=== PATIENT | male | born 1960 | race Caucasian/White ===

== ENCOUNTER 2018-03-24 21:32 | Inpatient (IN) | payer OTHER ==
[~2018-03-24] VITALS: Ht 172.7 cm; Wt 88.7 kg
[2018-03-24] MEDS ORDERED: ALPR1TAB2 PO (21:51)
[2018-03-24] MEDS ORDERED: [UNRECOGNIZED DRUG - OTHER] PO (21:52)
[2018-03-24] MEDS ORDERED: SILD50TA PO (21:52)
[2018-03-24] MEDS ORDERED: TRIBENZOR (21:53)
[2018-03-24] MEDS ORDERED: BYSTOLIC (21:54)
--- NOTE | 2018-03-24 22:01 | NUR ---
PT BIB [facility] FROM [facility] FOR A 8 MM SUBDURAL HEMATOMA PT WENT TO THE ED C/O A HEADACHE THAT WAS GETTING WORSE OVER THE LAST WEEK. PT HAD A GAINSWAVE PROCEDURE FOR ERECTILE DYSFUNCTION TODAY AND HAS HAD THEM TWICE A WEEK FOR THREE WEEKS. HE HAS STARTED TAKING A NEW MEDICATION CALLED CYDINOQUIL FOR THE LAST TWO WEEKS. HE HAS REPORTED HEADACHES SINCE HE STARTED TAKING THE NEW MEDICATION. HE ALSO TAKES VIAGRA OFTEN. LAST TAKEN YESTERDAY. HE HAS A HISTORY OF HTN, BUT HAS NOT BEEN COMPLAINT WITH TAKING HIS MEDS. PT WAS GIVEN HYDRALAZINE, REGLAN AND BENADRYL BELLSTAND ATTENDANT. PT REPORTS HE STILL HAS A HEADACHE. PT HAS BEEN SEEN BY DR CHAMBERS. AT BEDSIDE. EKG DONE. CALL LIGHT IN PLACE. WILL CONTINUE TO MONITOR.
--- NOTE | 2018-03-24 22:22 | NUR ---
[facility] CALLED. CT BEING PUSHED OVER
--- NOTE | 2018-03-24 22:28 | NUR ---
AWARE OF VS
--- NOTE | 2018-03-24 22:29 | NUR ---
PT RESTING IN ROOM WITH EYES CLOSED. REGULAR RESP. AT BEDSIDE. WILL CONTINUE TO MONITOR.
--- NOTE | 2018-03-24 22:48 | NUR ---
TOOK PATIENT'S BELONGINGS HOME
--- NOTE | 2018-03-24 22:48 | NUR ---
: LEORA [phone]
--- NOTE | 2018-03-24 22:49 | NUR ---
AWARE OF VS
--- NOTE | 2018-03-24 22:55 | NUR ---
PT'S INITIAL BP WAS 240/120 AT [facility] MD AWARE OF OF CURRENT VS NO NEW ORDERS AT THIS TIME.
--- NOTE | 2018-03-24 23:44 | NUR ---
HOSPITALIST IN ROOM
[2018-03-25] MEDS ORDERED: CAPTOPRIL 25 MG TABLET PO PRN
[2018-03-25] MEDS ORDERED: LABETALOL 5MG/ML, 20ML IVPush PRN
[2018-03-25] MEDS ORDERED: ONDANSETRON 2MG/ML, 2ML IVPush PRN
[2018-03-25] MEDS ORDERED: ACETAMINOPHEN 325 MG TABLET PO PRN
[2018-03-25] MEDS ORDERED: OXYcodone/APAP 5/325MG TABLET ONE (00:20)
[2018-03-25] MEDS: OXYcodone/APAP 5/325MG TABLET PO PRN (00:21)
[2018-03-25] MEDS ORDERED: hydrALAzine 20 MG/ML, 1ML ONE (00:26)
[2018-03-25] MEDS: hydrALAzine 20 MG/ML, 1ML IV PRN ×2 (00:28→02:12)
--- NOTE | 2018-03-25 00:31 | NUR ---
PT A&O X4 NO NEURO DEFICITS PT GIVEN A BLANKET. NO ACUTE DISTRESS NOTED. WILL CONTINUE TO MONITOR.
[2018-03-25 00:35] LABS: ANION GAP 7 mmol/L (5-15); CALCIUM 8.9 mg/dL (8.5-10.1); CHLORIDE 106 mmol/L (98-107)
--- NOTE | 2018-03-25 01:04 | NUR ---
PT RESTING IN ROOM. NO ACUTE DISTRESS NOTED. CALL LIGHT IN PLACE. WILL CONTINUE TO MONITOR.
[2018-03-25] MEDS: DEXAMETHASONE 4 MG TABLET PO SCH ×5 (02:38→20:21)
[2018-03-25 03:04] VITALS: BP 151/68
[2018-03-25 04:03] VITALS: BP 143/68
[2018-03-25 04:44] LABS: ANION GAP 9 mmol/L (5-15); CALCIUM 8.9 mg/dL (8.5-10.1); CHLORIDE 107 mmol/L (98-107); CHOLESTEROL, TOTAL 110 mg/dL (140-239)
[2018-03-25 04:46] LABS: CHOL/HDL RATIO 3.8; HDL CHOL % 26 % (26-37); HDL CHOLESTEROL (DIRECT) 29 mg/dL (40-60); LDL CHOLESTEROL,CALCULATED 56 mg/dL (54-169); LDL/HDL RATIO 1.9 (0.5-3.0); TRIGLYCERIDES 126 mg/dL (50-200); VLDL CHOLESTEROL 25 mg/dL (0-25)
[2018-03-25 05:31] LABS: MEAN CORPUSCULAR HEMOGLOBIN 29.4 pg (27.5-34.5); MEAN CORPUSCULAR HGB CONC 33.4 g/dL (33.2-36.2); MEAN CORPUSCULAR VOLUME 88.3 fL (81-97); RED BLOOD COUNT 6.38 x10^6/uL (4.38-5.82); RED CELL DISTRIBUTION WIDTH 14.5 % (9.4-14.8)
[2018-03-25] MEDS ORDERED: DEXAMETHASONE 4 MG TABLET PO SCH (06:00)
[2018-03-25 06:04] LABS: BASOPHILS % (AUTO) 1 % (0-1); EOSINOPHILS # (AUTO) 0.15 x10^3/uL (0-0.4); EOSINOPHILS % (AUTO) 1 % (1-7); LYMPHOCYTES # (AUTO) 1.17 x10^3/uL (1-3.4); LYMPHOCYTES % (AUTO) 9 % (22-44); MD SCAN; MEAN PLATELET VOLUME 11.7 fL (7.4-10.4); MONOCYTES # (AUTO) 0.62 x10^3/uL (0.2-0.8); MONOCYTES % (AUTO) 5 % (2-9); NEUTROPHILS # (AUTO) 11.24 x10^3/uL (1.8-6.8); NEUTROPHILS % (AUTO) 85 % (42-75); PLATELET COUNT 153 x10^3/uL (130-400)
[2018-03-25] MEDS: NEBIVOLOL HCL 5 MG TABLET PO SCH (08:23)
[2018-03-25] MEDS ORDERED: ALPRazolam 1MG TABLET PO SCH (09:00)
[2018-03-25] MEDS ORDERED: OMNIPAQUE 350 MG/ML, 100ML BOTTLE ONE (10:42)
[2018-03-25] MEDS: ALPRazolam 1MG TABLET PO PRN (16:09)
[2018-03-25] MEDS: NICOTINE 7 MG/24 HR PATCH.TD24 TD SCH (17:49)
[2018-03-26] MEDS: ALPRazolam 1MG TABLET PO PRN ×2 (00:23→10:11)
[2018-03-26] MEDS: CALCIUM CARBONATE 500 MG TAB.CHEW PO PRN ×2 (00:24→04:13)
[2018-03-26 04:00] VITALS: BP 142/74
[2018-03-26 04:30] LABS: MEAN CORPUSCULAR HEMOGLOBIN 29.2 pg (27.5-34.5); MEAN CORPUSCULAR HGB CONC 32.6 g/dL (33.2-36.2); MEAN CORPUSCULAR VOLUME 89.6 fL (81-97); MEAN PLATELET VOLUME 10.8 fL (7.4-10.4); PLATELET COUNT 170 x10^3/uL (130-400); RED BLOOD COUNT 6.53 x10^6/uL (4.38-5.82); RED CELL DISTRIBUTION WIDTH 14.5 % (9.4-14.8)
[2018-03-26 04:42] LABS: ALBUMIN 3.9 g/dL (3.4-5.0); CALCIUM 9.7 mg/dL (8.5-10.1); CHLORIDE 104 mmol/L (98-107)
[2018-03-26 04:46] LABS: ALANINE AMINOTRANSFERASE 18 U/L (12-78); ALKALINE PHOSPHATASE 96 U/L (45-117); ANION GAP 6 mmol/L (5-15); BILIRUBIN,TOTAL 0.9 mg/dL (0.2-1.0); CREATININE 1.29 mg/dL (0.7-1.3); TOTAL PROTEIN 8.6 g/dL (6.4-8.2)
[2018-03-26 05:10] LABS: BASOPHILS % (AUTO) 1 % (0-1); EOSINOPHILS % (AUTO) 0 % (1-7); LYMPHOCYTES # (AUTO) 0.87 x10^3/uL (1-3.4); LYMPHOCYTES % (AUTO) 5 % (22-44); MD SCAN; MONOCYTES # (AUTO) 0.31 x10^3/uL (0.2-0.8); MONOCYTES % (AUTO) 2 % (2-9); NEUTROPHILS # (AUTO) 17.95 x10^3/uL (1.8-6.8); NEUTROPHILS % (AUTO) 93 % (42-75)
[2018-03-26] MEDS: DEXAMETHASONE 4 MG TABLET PO SCH ×4 (05:35→21:00)
[2018-03-26] MEDS: AMLODIPINE 5 MG TABLET PO SCH ×2 (10:06→21:00)
[2018-03-26] MEDS: NEBIVOLOL HCL 5 MG TABLET PO SCH (10:06)
[2018-03-26] MEDS ORDERED: LOSARTAN 50MG TABLET PO SCH ×2 (13:30→15:30)
[2018-03-26] MEDS: NICOTINE 7 MG/24 HR PATCH.TD24 TD SCH (13:57)
[2018-03-26] MEDS ORDERED: hydrALAzine 20 MG/ML, 1ML IV PRN ×2 (14:00→20:00)
[2018-03-26] MEDS ORDERED: LOSARTAN 50MG TABLET ONE (15:05)
[2018-03-26] MEDS: INSULIN LISPRO 100 UNITS/ML, PEN SQ-INSULIN SCH ×2 (16:00→23:11)
[2018-03-26] MEDS ORDERED: BUPIVACAINE/PF-EPI 0.5% 1:200K ONE (18:08)
[2018-03-26] MEDS ORDERED: BACITRACIN 50,000 UNIT ONE (18:08)
[2018-03-26] MEDS ORDERED: THROMBIN 5,000 UNIT VIAL TP ONE (18:08)
[2018-03-26] MEDS ORDERED: FENTANYL PF 250 MCG/5ML ONE ×2 (18:17→19:01)
[2018-03-26] MEDS ORDERED: MIDAZOLAM 1 MG/ML, 2ML ONE (18:17)
[2018-03-26] MEDS ORDERED: MANNITOL PMX 20% 500 ML ONE (18:34)
[2018-03-26] MEDS ORDERED: CEFTRIAXONE 1,000 MG ONE (18:35)
[2018-03-26 18:43] LABS: INTERNATIONAL NORMALIZED RATIO 1.19 (0.93-1.1); PROTHROMBIN TIME 12.5 Seconds (9.6-11.5)
[2018-03-26] MEDS ORDERED: THROMBIN 20,000 UNIT VIAL TP ONE (18:57)
[2018-03-26] MEDS ORDERED: ONDANSETRON 2MG/ML, 2ML IV PRN ×2 (20:00→23:45)
[2018-03-26] MEDS ORDERED: ACETAMINOPHEN 325 MG TABLET PO PRN (20:00)
[2018-03-26] MEDS ORDERED: FENTANYL PF 100 MCG/2ML IV PRN (20:00)
[2018-03-26] MEDS ORDERED: ALBUTEROL SULFATE 2.5 MG/3 ML NPPB PRN (20:00)
[2018-03-26] MEDS ORDERED: LEVETIRACETAM 1,000 MG in SODIUM CHLORIDE 0.9% 100 ML IV ONE (20:00)
[2018-03-26] MEDS ORDERED: EPHEDRINE 50 MG/ML, 1ML IVPush PRN (20:00)
[2018-03-26] MEDS ORDERED: OXYcodone 5 MG/5 ML ORAL.SOL UDC PO PRN (20:00)
[2018-03-26] MEDS ORDERED: HYDROmorphone 2 MG/ML, 1ML IVPush PRN (20:00)
[2018-03-26] MEDS ORDERED: LABETALOL 5MG/ML, 20ML IV PRN ×2 (20:00→23:45)
[2018-03-26] MEDS ORDERED: PROMETHAZINE 25 MG/ML, 1ML IV PRN (20:00)
[2018-03-26] MEDS ORDERED: MIDAZOLAM 1 MG/ML, 2ML IV PRN (20:00)
[2018-03-26] MEDS ORDERED: DIAZEPAM 5 MG/ML, 2ML IVPush PRN (20:00)
[2018-03-26] MEDS ORDERED: MORPHINE SULFATE 4 MG/ML, 1ML IVPush PRN (20:00)
[2018-03-26] MEDS ORDERED: ONDANSETRON ODT 8 MG PO PRN (20:00)
[2018-03-26] MEDS ORDERED: PROMETHAZINE 12.5 MG SUPP PR PRN (20:00)
[2018-03-26] MEDS ORDERED: HALOPERIDOL 5 MG/ML IV PRN (20:00)
[2018-03-26] MEDS ORDERED: MEPERIDINE/PF 25MG/0.5ML IVPush PRN (20:00)
[2018-03-26] MEDS ORDERED: ROCURONIUM 10MG/ML,5ML ONE (20:11)
[2018-03-26] MEDS ORDERED: PROPOFOL 10 MG/ML, 20ML ONE (20:11)
[2018-03-26] MEDS ORDERED: ONDANSETRON 2MG/ML, 2ML ONE ×2 (20:11→20:12)
[2018-03-26] MEDS ORDERED: DEXAMETHASONE 4 MG/ML, 1ML ONE ×3 (20:11→20:12)
[2018-03-26] MEDS ORDERED: SUCCINYLCHOLINE 20 MG/ML, 10ML ONE (20:11)
[2018-03-26] MEDS ORDERED: GLYCOPYRROLATE 0.2MG/1ML, 5ML ONE (20:12)
[2018-03-26] MEDS ORDERED: VASOPRESSIN 20 UNIT/ML, 1ML ONE (20:12)
[2018-03-26] MEDS ORDERED: CEFAZOLIN 1,000 MG ONE ×2 (20:12)
[2018-03-26] MEDS ORDERED: hydrALAzine 20 MG/ML, 1ML ONE (20:51)
[2018-03-26] MEDS ORDERED: FENTANYL PF 100 MCG/2ML ONE (21:19)
[2018-03-26] MEDS ORDERED: cloniDINE/PF 100 MCG/ML, 10 ML ONE (21:29)
[2018-03-26] MEDS ORDERED: cloniDINE 0.3MG PATCH ONE (21:36)
[2018-03-26] MEDS ORDERED: cloniDINE 0.3MG PATCH TD ONE (23:00)
[2018-03-26] MEDS ORDERED: NS + 20MEQ KCL 1,000 ML IV SCH (23:45)
[2018-03-26] MEDS ORDERED: ACETAMINOPHEN 650 MG SUPP PR PRN (23:45)
[2018-03-26] MEDS ORDERED: HYDROcodone/APAP 5/325 TABLET PO PRN (23:45)
[2018-03-26] MEDS ORDERED: morphine SULFATE 10 MG/ML, 1ML IV PRN (23:45)
[2018-03-27] MEDS: CEFAZOLIN PMX 1GM/50ML 50 ML IVPB SCH ×2 (00:17→08:10)
[2018-03-27] MEDS: morphine SULFATE 10 MG/ML, 1ML IV PRN ×2 (00:26→10:50)
[2018-03-27] MEDS ORDERED: LORazepam 2 MG/ML, 1ML IVPush ONE (01:00)
[2018-03-27] MEDS ORDERED: LORazepam 2 MG/ML, 1ML IVPush PRN (02:30)
[2018-03-27] MEDS ORDERED: PHARMACY MAY ADJ FOR RENAL FX MC SCH (03:00)
[2018-03-27] MEDS ORDERED: LIDOCAINE-MPF 1%, 2ML ENDO PRN (03:00)
[2018-03-27] MEDS: PROPOFOL 100 ML IV PRN ×2 (03:04→08:14)
[2018-03-27 04:00] VITALS: BP 105/48
[2018-03-27 05:19] LABS: ANION GAP 5 mmol/L (5-15); CALCIUM 7.6 mg/dL (8.5-10.1); CHLORIDE 111 mmol/L (98-107); CREATININE 1.33 mg/dL (0.7-1.3)
[2018-03-27] MEDS: FAMOTIDINE 20 MG/2 ML IV SCH ×2 (05:31→16:47)
[2018-03-27 06:56] LABS: MEAN CORPUSCULAR HEMOGLOBIN 29.3 pg (27.5-34.5); MEAN CORPUSCULAR HGB CONC 32.5 g/dL (33.2-36.2); MEAN PLATELET VOLUME 11.6 fL (7.4-10.4); PLATELET COUNT 186 x10^3/uL (130-400); RED CELL DISTRIBUTION WIDTH 14.9 % (9.4-14.8)
[2018-03-27 07:11] LABS: BASOPHILS % (AUTO) 0 % (0-1); EOSINOPHILS % (AUTO) 0 % (1-7); LYMPHOCYTES # (AUTO) 0.45 x10^3/uL (1-3.4); LYMPHOCYTES % (AUTO) 2 % (22-44); MD SCAN; MONOCYTES % (AUTO) 3 % (2-9); NEUTROPHILS # (AUTO) 20.02 x10^3/uL (1.8-6.8); NEUTROPHILS % (AUTO) 95 % (42-75)
[2018-03-27] MEDS: INSULIN LISPRO 100 UNITS/ML, PEN SQ-INSULIN SCH ×4 (08:07→21:00)
[2018-03-27] MEDS: LEVETIRACETAM 500 MG in SODIUM CHLORIDE 0.9% 100 ML IV SCH ×2 (08:10→21:01)
[2018-03-27] MEDS: AMLODIPINE 5 MG TABLET PO SCH (09:00)
[2018-03-27] MEDS ORDERED: ETOMIDATE 40 MG/20 ML ONE (09:25)
[2018-03-27] MEDS ORDERED: PROPOFOL 10 MG/ML, 100ML IV ONE (09:25)
[2018-03-27] MEDS ORDERED: MIDAZOLAM 1 MG/ML, 5ML ONE (09:25)
[2018-03-27] MEDS ORDERED: DEXMEDETOMIDINE 1,000 MCG in SODIUM CHLORIDE 0.9% 240 ML IV PRN (09:30)
[2018-03-27] MEDS: SENNA/DOCUSATE TABLET PO SCH (09:56)
[2018-03-27] MEDS ORDERED: SODIUM CHLORIDE 0.9%, 500ML IVBOLUS ONE ×2 (11:30→17:00)
[2018-03-27] MEDS: SODIUM CHLORIDE 0.9% 1,000 ML IV SCH (13:00)
[2018-03-27] MEDS ORDERED: LOSARTAN 50MG TABLET PO SCH (13:30)
[2018-03-27 14:32] LABS: ANION GAP 8 mmol/L (5-15); CALCIUM 7.6 mg/dL (8.5-10.1); CHLORIDE 112 mmol/L (98-107); CREATININE 1.54 mg/dL (0.7-1.3)
[2018-03-27] MEDS: NICOTINE 7 MG/24 HR PATCH.TD24 TD SCH (17:02)
[2018-03-28] MEDS: SODIUM CHLORIDE 0.9% 1,000 ML IV SCH ×2 (05:36→07:43)
[2018-03-28] MEDS: FAMOTIDINE 20 MG/2 ML IV SCH (05:36)
[2018-03-28 06:48] LABS: BASOPHILS # (AUTO) 0.04 x10^3/uL (0-0.1); BASOPHILS % (AUTO) 0 % (0-1); EOSINOPHILS % (AUTO) 0 % (1-7); LYMPHOCYTES # (AUTO) 0.62 x10^3/uL (1-3.4); LYMPHOCYTES % (AUTO) 4 % (22-44); MD NO; MEAN CORPUSCULAR HEMOGLOBIN 29.2 pg (27.5-34.5); MEAN CORPUSCULAR HGB CONC 32.4 g/dL (33.2-36.2); MEAN CORPUSCULAR VOLUME 90.3 fL (81-97); MEAN PLATELET VOLUME 10.8 fL (7.4-10.4); MONOCYTES # (AUTO) 0.97 x10^3/uL (0.2-0.8); MONOCYTES % (AUTO) 6 % (2-9); NEUTROPHILS # (AUTO) 15.49 x10^3/uL (1.8-6.8); NEUTROPHILS % (AUTO) 91 % (42-75); PLATELET COUNT 140 x10^3/uL (130-400); RED BLOOD COUNT 5.33 x10^6/uL (4.38-5.82); RED CELL DISTRIBUTION WIDTH 14.8 % (9.4-14.8)
[2018-03-28 06:54] LABS: CALCIUM 8.4 mg/dL (8.5-10.1); CHLORIDE 114 mmol/L (98-107)
[2018-03-28 06:58] LABS: ANION GAP 4 mmol/L (5-15)
[2018-03-28] MEDS: INSULIN LISPRO 100 UNITS/ML, PEN SQ-INSULIN SCH ×4 (07:00→20:33)
[2018-03-28] MEDS: hydrALAzine 20 MG/ML, 1ML IV PRN ×4 (08:02→20:33)
[2018-03-28] MEDS: LEVETIRACETAM 500 MG in SODIUM CHLORIDE 0.9% 100 ML IV SCH ×2 (08:02→20:22)
[2018-03-28] MEDS: SENNA/DOCUSATE TABLET PO SCH (12:13)
[2018-03-28] MEDS ORDERED: LOSARTAN 50MG TABLET ONE ×2 (16:05)
[2018-03-28] MEDS: LOSARTAN 50MG TABLET PO SCH ×2 (16:08→20:28)
[2018-03-28] MEDS: FAMOTIDINE 20 MG/2 ML IVPush SCH (16:09)
[2018-03-28] MEDS: NICOTINE 7 MG/24 HR PATCH.TD24 TD SCH (16:09)
[2018-03-28] MEDS: morphine SULFATE 10 MG/ML, 1ML IV PRN ×2 (19:12→23:52)
[2018-03-29] MEDS: hydrALAzine 20 MG/ML, 1ML IV PRN (02:56)
[2018-03-29] MEDS: FAMOTIDINE 20 MG/2 ML IVPush SCH (02:56)
[2018-03-29] MEDS: SODIUM CHLORIDE 0.9% 1,000 ML IV SCH (03:39)
[2018-03-29] MEDS: ALPRazolam 1MG TABLET PO PRN ×3 (03:39→20:14)
[2018-03-29 05:38] LABS: ANION GAP 5 mmol/L (5-15); CALCIUM 8.2 mg/dL (8.5-10.1); CHLORIDE 111 mmol/L (98-107)
[2018-03-29 05:40] LABS: CREATININE 0.74 mg/dL (0.7-1.3)
[2018-03-29 05:42] LABS: BASOPHILS # (AUTO) 0.01 x10^3/uL (0-0.1); BASOPHILS % (AUTO) 0 % (0-1); EOSINOPHILS % (AUTO) 0 % (1-7); LYMPHOCYTES # (AUTO) 0.82 x10^3/uL (1-3.4); LYMPHOCYTES % (AUTO) 7 % (22-44); MD NO; MEAN CORPUSCULAR HEMOGLOBIN 29.2 pg (27.5-34.5); MEAN CORPUSCULAR HGB CONC 32.4 g/dL (33.2-36.2); MEAN CORPUSCULAR VOLUME 90.3 fL (81-97); MEAN PLATELET VOLUME 10.8 fL (7.4-10.4); MONOCYTES # (AUTO) 1.06 x10^3/uL (0.2-0.8); MONOCYTES % (AUTO) 9 % (2-9); NEUTROPHILS % (AUTO) 85 % (42-75); PLATELET COUNT 140 x10^3/uL (130-400); RED BLOOD COUNT 5.28 x10^6/uL (4.38-5.82); RED CELL DISTRIBUTION WIDTH 14.8 % (9.4-14.8)
[2018-03-29] MEDS: INSULIN LISPRO 100 UNITS/ML, PEN SQ-INSULIN SCH (07:00)
[2018-03-29] MEDS: LEVETIRACETAM 500 MG in SODIUM CHLORIDE 0.9% 100 ML IV SCH (08:20)
[2018-03-29] MEDS: LOSARTAN 50MG TABLET PO SCH ×2 (09:16→20:14)
[2018-03-29] MEDS: SENNA/DOCUSATE TABLET PO SCH (09:16)
[2018-03-29] MEDS: LINEZOLID PMX 600MG/300ML 300 ML IV SCH ×2 (10:05→23:18)
[2018-03-29] MEDS ORDERED: SODIUM PHOSPHATE 10 MMOL in SODIUM CHLORIDE 0.9% 500 ML IV ONE (11:30)
[2018-03-29] MEDS ORDERED: PINK LADY ENEMA 490 ML BOTTLE PR PRN (12:00)
[2018-03-29] MEDS ORDERED: BISACODYL 10 MG SUPP PR PRN (12:00)
[2018-03-29] MEDS ORDERED: POLYETHYLENE GLYCOL 17 GM PACKET PO PRN (12:00)
[2018-03-29] MEDS ORDERED: MAGNESIUM CITRATE 300ML ORAL SOL PO PRN ×2 (12:00)
[2018-03-29] MEDS: TAMSULOSIN 0.4 MG CAP.ER.24H PO SCH (13:16)
[2018-03-29] MEDS: FAMOTIDINE 20 MG TABLET PO SCH (13:17)
[2018-03-29] MEDS: DOXAZOSIN 1MG TABLET PO SCH (13:17)
[2018-03-29] MEDS: AMLODIPINE 10 MG TAB PO SCH (13:17)
[2018-03-29] MEDS: NICOTINE 7 MG/24 HR PATCH.TD24 TD SCH (17:15)
[2018-03-29] MEDS ORDERED: LEVETIRACETAM 500 MG in SODIUM CHLORIDE 0.9% 100 ML IV ONE (18:30)
[2018-03-30] MEDS: FAMOTIDINE 20 MG TABLET PO SCH ×3 (02:35→20:26)
[2018-03-30] MEDS ORDERED: niCARDipine 100 MG in SODIUM CHLORIDE 0.9% 210 ML IV PRN (02:53)
[2018-03-30 04:29] LABS: BASOPHILS # (AUTO) 0.02 x10^3/uL (0-0.1); BASOPHILS % (AUTO) 0 % (0-1); EOSINOPHILS # (AUTO) 0.07 x10^3/uL (0-0.4); EOSINOPHILS % (AUTO) 1 % (1-7); LYMPHOCYTES # (AUTO) 0.86 x10^3/uL (1-3.4); LYMPHOCYTES % (AUTO) 8 % (22-44); MD NO; MEAN CORPUSCULAR HEMOGLOBIN 29.3 pg (27.5-34.5); MEAN CORPUSCULAR HGB CONC 32.7 g/dL (33.2-36.2); MEAN CORPUSCULAR VOLUME 89.5 fL (81-97); MEAN PLATELET VOLUME 10.3 fL (7.4-10.4); MONOCYTES # (AUTO) 0.89 x10^3/uL (0.2-0.8); MONOCYTES % (AUTO) 9 % (2-9); NEUTROPHILS % (AUTO) 82 % (42-75); PLATELET COUNT 144 x10^3/uL (130-400); RED BLOOD COUNT 5.26 x10^6/uL (4.38-5.82); RED CELL DISTRIBUTION WIDTH 13.7 % (9.4-14.8)
[2018-03-30 04:39] LABS: ANION GAP 6 mmol/L (5-15); CHLORIDE 110 mmol/L (98-107); CREATININE 0.92 mg/dL (0.7-1.3); TRIGLYCERIDES 122 mg/dL (50-200)
[2018-03-30] MEDS: ALPRazolam 1MG TABLET PO PRN (06:00)
[2018-03-30] MEDS: LEVETIRACETAM 750 MG in SODIUM CHLORIDE 0.9% 100 ML IV SCH ×2 (08:39→20:26)
[2018-03-30] MEDS: AMLODIPINE 10 MG TAB PO SCH (08:39)
[2018-03-30] MEDS: DOXAZOSIN 1MG TABLET PO SCH (08:39)
[2018-03-30] MEDS: LOSARTAN 50MG TABLET PO SCH ×2 (08:40→20:26)
[2018-03-30] MEDS: TAMSULOSIN 0.4 MG CAP.ER.24H PO SCH (08:40)
[2018-03-30] MEDS: SENNA/DOCUSATE TABLET PO SCH (08:40)
[2018-03-30] MEDS ORDERED: SODIUM PHOSPHATE 20 MMOL in SODIUM CHLORIDE 0.9% 500 ML IV ONE (09:30)
[2018-03-30] MEDS: LINEZOLID PMX 600MG/300ML 300 ML IV SCH (09:54)
[2018-03-30] MEDS: POTASSIUM CHLORIDE 10% 40 MEQ/30 ML UDC PO SCH ×2 (10:21→20:27)
[2018-03-30] MEDS: NICOTINE 7 MG/24 HR PATCH.TD24 TD SCH (16:39)
[2018-03-30] MEDS ORDERED: ERTAPENEM 1 GM in SODIUM CHLORIDE 0.9% 50 ML IV SCH (17:00)
[2018-03-30] MEDS: ACETAMINOPHEN 325 MG TABLET PO PRN (19:26)
[2018-03-31] MEDS: TAMSULOSIN 0.4 MG CAP.ER.24H PO SCH (08:09)
[2018-03-31] MEDS: AMLODIPINE 10 MG TAB PO SCH (08:09)
[2018-03-31] MEDS: LOSARTAN 50MG TABLET PO SCH ×2 (08:09→20:42)
[2018-03-31] MEDS: DOXAZOSIN 1MG TABLET PO SCH (08:09)
[2018-03-31] MEDS: FAMOTIDINE 20 MG TABLET PO SCH (08:11)
[2018-03-31] MEDS: SENNA/DOCUSATE TABLET PO SCH (08:11)
[2018-03-31] MEDS: ACETAMINOPHEN 325 MG TABLET PO PRN ×2 (08:11→18:22)
[2018-03-31] MEDS: LEVETIRACETAM 750 MG in SODIUM CHLORIDE 0.9% 100 ML IV SCH ×2 (08:43→20:42)
[2018-03-31] MEDS: AMOXICILLIN/CLAV 500-125MG TABLET PO SCH ×2 (10:51→16:47)
[2018-03-31] MEDS: NICOTINE 7 MG/24 HR PATCH.TD24 TD SCH (16:47)
[2018-03-31 20:47] VITALS: BP 159/67
[2018-03-31] MEDS: ALPRazolam 1MG TABLET PO PRN (23:24)
[2018-04-01] VITALS (14 sets, daily range): BP systolic 137–185; BP diastolic 52–84
[2018-04-01] MEDS: AMOXICILLIN/CLAV 500-125MG TABLET PO SCH ×3 (02:05→17:25)
[2018-04-01] MEDS: ACETAMINOPHEN 325 MG TABLET PO PRN ×2 (04:39→15:54)
[2018-04-01 04:52] LABS: ANION GAP 4 mmol/L (5-15); CALCIUM 8.1 mg/dL (8.5-10.1); CHLORIDE 109 mmol/L (98-107)
[2018-04-01 04:53] LABS: CREATININE 0.82 mg/dL (0.7-1.3)
[2018-04-01] MEDS: LOSARTAN 50MG TABLET PO SCH ×2 (07:30→20:35)
[2018-04-01] MEDS: LEVETIRACETAM 750 MG in SODIUM CHLORIDE 0.9% 100 ML IV SCH (07:30)
[2018-04-01] MEDS: TAMSULOSIN 0.4 MG CAP.ER.24H PO SCH (07:30)
[2018-04-01] MEDS: AMLODIPINE 10 MG TAB PO SCH (07:30)
[2018-04-01] MEDS: SENNA/DOCUSATE TABLET PO SCH (07:31)
[2018-04-01] MEDS: DOXAZOSIN 1MG TABLET PO SCH (07:31)
[2018-04-01] MEDS: OXYcodone/APAP 5/325MG TABLET PO PRN (08:31)
[2018-04-01] MEDS: hydrALAzine 20 MG/ML, 1ML IV PRN ×2 (14:05→18:11)
[2018-04-01 14:22] LABS: CLOSTRIDIUM DIFFICILE ANTIGEN NEGATIVE; CLOSTRIDIUM DIFFICILE TOXIN NEGATIVE (Negative)
[2018-04-01] MEDS: NICOTINE 7 MG/24 HR PATCH.TD24 TD SCH (15:55)
[2018-04-01] MEDS ORDERED: ENALAPRILAT 1.25 MG/ML, 2ML ONE (17:22)
[2018-04-01] MEDS: ENALAPRILAT 1.25 MG/ML, 2ML IV PRN (17:25)
[2018-04-01] MEDS: ALPRazolam 1MG TABLET PO PRN (18:32)
[2018-04-01] MEDS: LEVETIRACETAM 500 MG TABLET PO SCH (20:35)
[2018-04-01] MEDS: CALCIUM CARBONATE 500 MG TAB.CHEW PO PRN (20:40)
[2018-04-02] VITALS (14 sets, daily range): BP systolic 139–176; BP diastolic 60–83
[2018-04-02] MEDS: ACETAMINOPHEN 325 MG TABLET PO PRN ×2 (02:05→15:46)
[2018-04-02] MEDS: AMOXICILLIN/CLAV 500-125MG TABLET PO SCH ×3 (02:05→17:15)
[2018-04-02] MEDS: hydrALAzine 20 MG/ML, 1ML IV PRN ×2 (02:22→18:32)
[2018-04-02] MEDS: ALPRazolam 1MG TABLET PO PRN ×2 (03:14→12:23)
[2018-04-02] MEDS: ENALAPRILAT 1.25 MG/ML, 2ML IV PRN ×2 (03:16→17:16)
[2018-04-02 06:13] LABS: BASOPHILS # (AUTO) 0.03 x10^3/uL (0-0.1); BASOPHILS % (AUTO) 0 % (0-1); EOSINOPHILS # (AUTO) 0.26 x10^3/uL (0-0.4); EOSINOPHILS % (AUTO) 3 % (1-7); LYMPHOCYTES # (AUTO) 1.12 x10^3/uL (1-3.4); LYMPHOCYTES % (AUTO) 12 % (22-44); MD NO; MEAN CORPUSCULAR HEMOGLOBIN 29.2 pg (27.5-34.5); MEAN CORPUSCULAR HGB CONC 32.7 g/dL (33.2-36.2); MEAN CORPUSCULAR VOLUME 89.3 fL (81-97); MEAN PLATELET VOLUME 9.5 fL (7.4-10.4); MONOCYTES # (AUTO) 0.98 x10^3/uL (0.2-0.8); MONOCYTES % (AUTO) 11 % (2-9); NEUTROPHILS # (AUTO) 6.95 x10^3/uL (1.8-6.8); NEUTROPHILS % (AUTO) 75 % (42-75); PLATELET COUNT 190 x10^3/uL (130-400); RED CELL DISTRIBUTION WIDTH 13.7 % (9.4-14.8)
[2018-04-02 06:21] LABS: ALANINE AMINOTRANSFERASE 23 U/L (12-78); ALBUMIN 2.7 g/dL (3.4-5.0); ANION GAP 7 mmol/L (5-15); CALCIUM 8.4 mg/dL (8.5-10.1); CHLORIDE 108 mmol/L (98-107)
[2018-04-02 06:24] LABS: ALKALINE PHOSPHATASE 78 U/L (45-117); BILIRUBIN,TOTAL 0.9 mg/dL (0.2-1.0); CREATININE 0.79 mg/dL (0.7-1.3); TOTAL PROTEIN 6.1 g/dL (6.4-8.2)
[2018-04-02] MEDS: LOSARTAN 50MG TABLET PO SCH ×2 (07:52→20:26)
[2018-04-02] MEDS: TAMSULOSIN 0.4 MG CAP.ER.24H PO SCH (07:52)
[2018-04-02] MEDS: AMLODIPINE 10 MG TAB PO SCH (07:52)
[2018-04-02] MEDS: LEVETIRACETAM 500 MG TABLET PO SCH ×2 (07:52→19:52)
[2018-04-02] MEDS: SENNA/DOCUSATE TABLET PO SCH (07:53)
[2018-04-02] MEDS: OXYcodone/APAP 5/325MG TABLET PO PRN (07:53)
[2018-04-02] MEDS: DOXAZOSIN 1MG TABLET PO SCH (07:53)
[2018-04-02] MEDS: CHLORTHALIDONE 25 MG TABLET PO SCH ×2 (08:49→08:51)
[2018-04-02] MEDS ORDERED: LOPERAMIDE 2 MG CAPSULE PO PRN (11:30)
[2018-04-02] MEDS: NICOTINE 7 MG/24 HR PATCH.TD24 TD SCH (15:47)
[2018-04-03] VITALS (7 sets, daily range): BP systolic 138–185; BP diastolic 61–80
[2018-04-03] MEDS: AMOXICILLIN/CLAV 500-125MG TABLET PO SCH ×2 (02:29→08:05)
[2018-04-03] MEDS: LEVETIRACETAM 500 MG TABLET PO SCH (08:00)
[2018-04-03] MEDS: CHLORTHALIDONE 25 MG TABLET PO SCH (08:01)
[2018-04-03] MEDS: TAMSULOSIN 0.4 MG CAP.ER.24H PO SCH (08:02)
[2018-04-03] MEDS: AMLODIPINE 10 MG TAB PO SCH (08:03)
[2018-04-03] MEDS: DOXAZOSIN 1MG TABLET PO SCH (08:04)
[2018-04-03] MEDS: LOSARTAN 50MG TABLET PO SCH (08:05)
[2018-04-03] MEDS: SENNA/DOCUSATE TABLET PO SCH (09:00)
[2018-04-03] MEDS: ALPRazolam 1MG TABLET PO PRN (09:46)
[2018-04-03] MEDS ORDERED: CHLO25TA PO (10:55)
[2018-04-03] MEDS ORDERED: TAMS-11 PO (10:55)
[2018-04-03] MEDS ORDERED: AMLO10TA8 PO (10:55)
[2018-04-03] MEDS ORDERED: LEVE500T53 PO (10:55)
[2018-04-03] MEDS ORDERED: HYDR-3343 PO (10:55)
[2018-04-03] MEDS ORDERED: DOXA1TAB PO (10:55)
[2018-04-03] MEDS ORDERED: AMOX-367 PO (10:58)
== END 2018-04-03 13:15 | disposition home or self-care (01) | DRG 25 ==
LOC: ED 22:28 → EDIP 23:25 → ICU 03-25 02:03 → DCLOUNGE 04-03 12:44
PROVIDERS: ADMIT Internal Medicine; ATTEND Internal Medicine
PROC: 00C40ZZ Extirpation of Matter from Intracranial Subdural Space, Open Approach (ICD-10-PCS; principal; 2018-03-26 18:00)
PROC: 5A1935Z Respiratory Ventilation, Less than 24 Consecutive Hours (ICD-10-PCS; 2018-03-27)
PROC: 0BH17EZ Insertion of Endotracheal Airway into Trachea, Via Natural or Artificial Opening (ICD-10-PCS; 2018-03-27)
DX: I62.01 Nontraumatic acute subdural hemorrhage (principal); J96.00 Acute respiratory failure, unspecified whether with hypoxia or hypercapnia; J15.211 Pneumonia due to Methicillin susceptible Staphylococcus aureus; E87.3 Alkalosis; G93.40 Encephalopathy, unspecified; I16.1 Hypertensive emergency; Z99.11 Dependence on respirator [ventilator] status; R47.01 Aphasia; R73.9 Hyperglycemia, unspecified; E87.6 Hypokalemia; F32.9 Major depressive disorder, single episode, unspecified; F43.10 Post-traumatic stress disorder, unspecified; I10 Essential (primary) hypertension; Z79.899 Other long term (current) drug therapy; Z81.1 Family history of alcohol abuse and dependence; Z82.49 Family history of ischemic heart disease and other diseases of the circulatory system; Z91.14 Patient's other noncompliance with medication regimen; Z91.19 Patient's noncompliance with other medical treatment and regimen
CPT/HCPCS: 36415; 36600; 99291; J3490; 70450; 70496; 71045; 80048; 80053; 80061; 82803; 82962; 83735; 84100; 84295; 84478; 85025; 85610; 85730; 87070; 87077; 87081; 87186; 87205; 87324; 88305; 93005; 93306; 94002; C1713; G0378; J0690; J0696; J1100; J1335; J1953; J2020; J2250; J2405; J2704; J3010; J3480; Q9967; 92523-GN; C1781; J0330; J0360; J0735; J1815; J2060; J2270; J7030; J7040; J7050